=== PATIENT | female | born 1970 | race American Indian/Alaskan Native ===

== ENCOUNTER 2016-12-23 13:25 | Emergency (ER) | payer SELFPAY | END 2016-12-23 13:30 | disposition left against medical advice (07) | LOC: ED 13:25 | DX: R10.9 Unspecified abdominal pain (principal); Z53.21 Procedure and treatment not carried out due to patient leaving prior to being seen by health care provider ==

== ENCOUNTER 2017-01-17 23:38 | Emergency (ER) | payer SELFPAY | END 2017-01-18 | disposition left against medical advice (07) | LOC: ED 23:38 | DX: R10.30 Lower abdominal pain, unspecified (principal); Z53.21 Procedure and treatment not carried out due to patient leaving prior to being seen by health care provider ==

== ENCOUNTER 2017-05-30 08:46 | Emergency (ER) | payer SELFPAY | END 2017-05-31 04:30 | disposition left against medical advice (07) | LOC: ED 08:46 | DX: R10.9 Unspecified abdominal pain (principal); R19.7 Diarrhea, unspecified; Z53.21 Procedure and treatment not carried out due to patient leaving prior to being seen by health care provider ==

== ENCOUNTER 2019-01-11 13:07 | Emergency (ER) | payer SELFPAY | END 2019-01-11 13:30 | disposition left against medical advice (07) | LOC: ED 13:07 | DX: R10.9 Unspecified abdominal pain (principal); Z53.21 Procedure and treatment not carried out due to patient leaving prior to being seen by health care provider ==

== ENCOUNTER 2019-03-08 16:41 | Emergency (ER) | payer SELFPAY | END 2019-03-08 17:00 | disposition left against medical advice (07) | LOC: ED 16:41 | DX: R10.9 Unspecified abdominal pain (principal); Z53.21 Procedure and treatment not carried out due to patient leaving prior to being seen by health care provider ==

== ENCOUNTER 2019-09-29 18:26 | Emergency (ER) | payer SELFPAY | END 2019-09-29 18:43 | disposition left against medical advice (07) | LOC: ED 18:26 | DX: R10.9 Unspecified abdominal pain (principal); Z53.21 Procedure and treatment not carried out due to patient leaving prior to being seen by health care provider ==

== ENCOUNTER 2019-10-20 09:41 | Emergency (ER) | payer SELFPAY ==
[2019-10-20 09:48] VITALS: BP 140/81
--- NOTE | 2019-10-20 10:21 | Emergency Department Report ---
Chief Complaint: Nausea/Vomiting/Diarrhea Stated Complaint: FLU Time Seen by Provider: 10/20/19 10:16 - HPI History of Present Illness: 49-year-old -[place] female presents to the emergency room complaining of nausea vomiting diarrhea. Patient reports she was seen at [facility] and was diagnosed with a stomach flu. Patient states she is able to drink fluids and eat. Patient reports that she vomited twice yesterday and once today. Patient also complains of nasal secretions runny nose. Patient is taken nothing [id number] for her symptoms. - Exam Vital Signs: Vital Signs 10/20/19 09:45 Temperature 97.9 F Pulse Rate 84 Respiratory 20 Rate Blood Pressure 140/81 O2 Sat by Pulse 100 Oximetry Physical Exam: Patient is alert and oriented x3 no acute distress. HEENT: Nares are patent with clear nasal discharge, throat is patent nonerythematous no edematous, neck supple and full range of motion Lungs: Clear to auscultation bilateral Cardiac: Regular rate and rhythm no murmurs. MSE screening note: Focused history and physical exam performed. Due to findings the following was ordered: 49-year-old -[place] female presents to the emergency room complaining of nausea vomiting diarrhea. Patient reports she was seen at [facility] and was diagnosed with a stomach flu. Patient states she is able to drink fluids and eat. Patient reports that she vomited twice yesterday and once today. Patient also complains of nasal secretions runny nose. Patient is taken nothing [id number] for her symptoms. Discussed with patient recommend supportive care she can use [id number] Flonase Afrin at night to help with her breathing. Claritin 10 mg daily Tylenol or ibuprofen for any pain. Increase her fluid intake advance her diet as tolerated. Follow-up with her primary care provider. ED Disposition for MSE Clinical Impression: Flu-like symptoms Disposition: MED SCREENING EXAM-LEFT Is pt being admited?: No Does the pt Need Aspirin: No Condition: Stable Additional Instructions: Recommend [id number] Flonase daily and can use Afrin only at night. Try taking Claritin 10 mg daily. Continue to drink and advance her diet as tolerated. Follow-up with Dr. Olivia Duque if symptoms persist or gets worse. Referrals: HALEIGH SEAY MD [Primary Care Provider] - 3-5 Days MARILEE DUQUE MD [Referring] - 3-5 Days Forms: Work/School Release Form(ED)
[2019-10-20] MEDS ORDERED: FLUORESCEIN 1 MG STRIP OP ONE (11:13)
[2019-10-24] MEDS ORDERED: DEXTROSE 50% IN WATER (25GM) 50 ML SYRINGE IV ONE (10:14)
== END 2019-10-20 10:25 | disposition left against medical advice (07) ==
LOC: ED 09:41
DX: R11.2 Nausea with vomiting, unspecified (principal); R19.7 Diarrhea, unspecified; R09.89 Other specified symptoms and signs involving the circulatory and respiratory systems
CPT/HCPCS: 99282

== ENCOUNTER 2022-05-13 14:00 | Emergency (ER) | payer SELFPAY ==
[2022-05-13 17:53] LABS: Albumin 4.6 g/dL (3.9-5); Calcium 9.7 mg/dL (8.4-10.2)
[2022-05-13 17:58] LABS: Hematocrit 50.1 % (30.3-42.9); Mean Corpuscular HGB Conc 32 % (30-34); Mean Corpuscular Volume 93 fl (79-97); Platelet Count 266 K/mm3 (140-440); Red Blood Count 5.41 M/mm3 (3.65-5.03); Red Cell Distribution Width 13.4 % (13.2-15.2)
--- NOTE | 2022-05-13 21:42 | Emergency Department Report ---
ED N/V/D HPI - General Chief complaint: Nausea/Vomiting/Diarrhea Stated complaint: FOOD POSION Time Seen by Provider: 05/13/22 20:59 Source: patient Mode of arrival: Ambulatory Limitations: No Limitations - History of Present Illness MD complaint: nausea, diarrhea -: Gradual Description of Vomiting: bilious Description of Diarrhea: other (brown watery ) Associated Abdominal Pain: No Location: diffuse Radiation: none Pain Scale: 0 Worsens with: eating Context: possible food poisoning (Ate shrimp that was left out for prolonged periods of time and developed diarrhea then ate monegasque and symptoms worsen. ) - Related Data Previous Rx's Medication Instructions Recorded Last Taken Type Ciprofloxacin HCl 500 mg PO BID #10 05/13/22 Unknown Rx Diphenoxylate/Atropine [Lomotil] 1 tab PO Q4H #05/13/22 Unknown Rx Allergies Allergy/AdvReac Type Severity Reaction Status Date / Time sulfamethoxazole AdvReac Rash Verified 05/13/22 14:50 [From Bactrim] trimethoprim [From Bactrim] AdvReac Rash Verified 05/13/22 14:50 ED Review of Systems ROS: Stated complaint: FOOD POSION Other details as noted in HPI Comment: All other systems reviewed and negative ED Past Medical Hx - Medications Home Medications: Home Medications Medication Instructions Recorded Confirmed Last Taken Type Ciprofloxacin HCl 500 mg PO BID #10 05/13/22 Unknown Rx Diphenoxylate/Atropine [Lomotil] 1 tab PO Q4H #05/13/22 Unknown Rx ED Physical Exam - General Limitations: No Limitations General appearance: alert, in no apparent distress - Head Head exam: Present: atraumatic, normocephalic - Eye Eye exam: Present: normal appearance - ENT ENT exam: Present: mucous membranes moist - Neck Neck exam: Present: normal inspection - Respiratory Respiratory exam: Present: normal lung sounds bilaterally. Absent: respiratory distress - Cardiovascular Cardiovascular Exam: Present: regular rate, normal rhythm. Absent: systolic murmur, diastolic murmur, rubs, gallop - GI/Abdominal GI/Abdominal exam: Present: soft, normal bowel sounds - Extremities Exam Extremities exam: Present: normal inspection - Back Exam Back exam: Present: normal inspection - Neurological Exam Neurological exam: Present: alert, oriented X3 - Psychiatric Psychiatric exam: Present: normal affect, normal mood - Skin Skin exam: Present: warm, dry, intact, normal color. Absent: rash ED Course Vital Signs 05/13/22 14:47 Temperature 99.2 F Pulse Rate 90 Respiratory 14 Rate Blood Pressure 123/93 [Left] O2 Sat by Pulse 99 Oximetry ED Medical Decision Making - Lab Data Result diagrams: 05/13/22 16:22 05/13/22 16:22 Critical care attestation.: If time is entered above; I have spent that time in minutes in the direct care of this critically ill patient, excluding procedure time. ED Disposition Clinical Impression: Diarrhea Disposition: 01 HOME / SELF CARE / HOMELESS Is pt being admited?: No Does the pt Need Aspirin: No Condition: Stable Instructions: Diarrhea, Adult, Food Choices to Help Relieve Diarrhea, Adult, Probiotics Prescriptions: Ciprofloxacin HCl 500 mg PO BID #10 Diphenoxylate/Atropine [Lomotil] 1 tab PO Q4H #20 Referrals: CHANEL CLAY MD [Primary Care Provider] - 3-5 Days Forms: Work/School Release Form(ED)
[2022-05-13 22:07] VITALS: BP 120/71
== END 2022-05-13 21:50 | disposition home or self-care (01) ==
LOC: ED 14:00 → MERGE 14:00 → ED 21:50
DX: R19.7 Diarrhea, unspecified (principal); R11.2 Nausea with vomiting, unspecified; Z79.899 Other long term (current) drug therapy
CPT/HCPCS: 36415; 80053; 83690; 85027; 99283